=== PATIENT | female | born 1955 | race Caucasian/White ===

== ENCOUNTER → 2023-04-17 | Outpatient (CLI) | payer MEDICARE, MEDICAID ==
[~2023-04-17] MED LIST: ADV250INH INH; ATOR40TA75 PO; CALC600T17 PO; FIBE625T27 PO; FLUT50SP17; FURO20TA2 PO; GLIP5TAB8 PO; GLYB5TAB6 PO; LISI10TA22 PO; MAGN400T35 PO; OMEP-173 PO; SITA50TAB PO; TRIA1CR80 TOP
[2023-04-21 16:13] LABS: ANGIOTENSIN 1 CONVERTING ENZYM 10 U/L (14-82); LYSOZYME 7.6 ug/mL (3.6-8.1)
== END ==
LOC: M RAD 16:53
PROVIDERS: ATTEND Ophthalmology Retina Specialist
DX: H30.14 Acute posterior multifocal placoid pigment epitheliopathy (principal)